=== PATIENT | female | born 1950 | race Caucasian/White ===

== ENCOUNTER 2018-09-23 01:36 | Outpatient (CLI) | payer MEDICARE ==
[~2018-09-23 01:36] MED LIST: CEPH-357 PO
== END 2018-09-23 23:59 | disposition home or self-care (01) ==
LOC: DIABETIC 01:36
PROVIDERS: ATTEND Family Medicine
DX: E11.9 Type 2 diabetes mellitus without complications (principal); Z71.3 Dietary counseling and surveillance; Z68.26 Body mass index [BMI] 26.0-26.9, adult
CPT/HCPCS: G0108